=== PATIENT | female | born 2000 | race Caucasian/White ===

== ENCOUNTER → 2021-06-21 09:09 | Outpatient (BNVA) | payer MEDICAID, SELFPAY | PROVIDERS: Family Provider Nurse Practitioner Family; PCP Nurse Practitioner Family; Visit Provider Nurse Practitioner Family | DX: N39.0 Urinary tract infection, site not specified (principal) | CPT/HCPCS: 81000 ==

== ENCOUNTER 2021-10-29 10:20 | Outpatient (CLI) | payer MEDICAID, SELFPAY ==
[2021-10-29] VITALS (9 sets, daily range): BP systolic 101–108; BP diastolic 58–63; PULSE 76–88; RESP 16–18; TEMP 36.4; BMI 22.8
[2021-10-29 11:38] LABS: Add Urine Microscopic? NO; Charge for UA Resulting for Rev
[2021-10-29 11:50] LABS: Bilirubin Urine Neg (Negative); Blood Urine Neg (Negative); Glucose Urine UA Norm (Normal); Ketones Urine Negative (Negative); Leukocyte Esterase Urine Negative (Negative); Nitrate Urine Negative (Negative); Protein Urine Neg (Negative); Specific Gravity, Urine 1.005 (1.005-1.030); Urine Appearance Clear (CLEAR); Urine Color Yellow (Yellow); Urobilinogen Urine Norm (Negative); pH Urine 7 (5-7)
== END 2021-10-29 12:30 | disposition home or self-care (01) ==
LOC: OPOB 10:24 → OBGYN 10:47
PROVIDERS: PCP Nurse Practitioner Family; Visit Provider Family Medicine
DX: O26.899 Other specified pregnancy related conditions, unspecified trimester (principal); Z3A.00 Weeks of gestation of pregnancy not specified; R10.9 Unspecified abdominal pain
CPT/HCPCS: 81003; 99211

== ENCOUNTER → 2022-03-14 09:49 | Outpatient (BNVA) | payer MEDICAID, SELFPAY | PROVIDERS: PCP Nurse Practitioner Family; Visit Provider Nurse Practitioner Family | DX: R30.0 Dysuria (principal); R31.9 Hematuria, unspecified; N39.0 Urinary tract infection, site not specified | CPT/HCPCS: 81000; 87086 ==

== ENCOUNTER → 2022-04-14 15:42 | Outpatient (BNVA) | payer MEDICAID, SELFPAY | PROVIDERS: PCP Nurse Practitioner Family; Visit Provider Nurse Practitioner Family | DX: R30.0 Dysuria (principal); N30.10 Interstitial cystitis (chronic) without hematuria | CPT/HCPCS: 81000 ==